=== PATIENT | male | born 2000 | race Caucasian/White ===

== ENCOUNTER 2021-01-28 21:09 | Emergency (ER) | payer MEDICAID, SELFPAY ==
[~2021-01-28] VITALS: Ht 177.8 cm; Wt 117.9 kg
[~2021-01-28 21:09] MED LIST: ALBU17AE26 IH
[2021-01-28 21:14] VITALS: BP_SYST 152
[2021-01-28] MEDS: ALBUTEROL SULFATE 0.083% 2.5 MG/3 ML VIAL.NEB INH ONE (21:49)
[2021-01-28] MEDS ORDERED: PRED20TA PO (21:57)
[2021-01-28] MEDS ORDERED: ALBMDI INH (21:57)
[2021-01-28] MEDS: IPRATROPIUM BROM 0.5 MG/2.5 ML VIAL.NEB (ATROVENT) INH ONE (22:15)
[2021-01-28] MEDS: predniSONE 20 MG TABLET PO ONE (22:15)
[2021-01-28 22:17] VITALS: BP_SYST 152
== END 2021-01-28 22:15 | disposition home or self-care (01) ==
LOC: SED 21:09
DX: J45.901 Unspecified asthma with (acute) exacerbation (principal); Z79.899 Other long term (current) drug therapy; Z20.822 Contact with and (suspected) exposure to COVID-19
CPT/HCPCS: 71045; 87426; 94640; 99284; J7512; J7613; 36415